=== PATIENT | male | born 1935 | race Caucasian/White ===

== ENCOUNTER 2021-06-28 10:11 | Emergency (ER) | payer MEDICARE, BC | END 2021-06-28 12:10 | disposition home or self-care (01) | LOC: CSHERS 10:11 | DX: M54.42 Lumbago with sciatica, left side (principal); M25.551 Pain in right hip; K21.9 Gastro-esophageal reflux disease without esophagitis; J44.9 Chronic obstructive pulmonary disease, unspecified; Z87.891 Personal history of nicotine dependence; W18.2XXA Fall in (into) shower or empty bathtub, initial encounter | CPT/HCPCS: 72100; 72170 ==